=== PATIENT | male | born 1960 | race Caucasian/White ===

== ENCOUNTER 2022-11-30 08:52 | Outpatient (OUT) | payer OTHER, SELFPAY ==
--- NOTE | 2022-11-30 09:58 | CA_ITS ---
Patient: LUCILLE ELKINS Exam Date: 11/30/2022 : 1960 Gender:M Ordering : DR TYRON CATES . Admission #: [id number] Family : Order #: [id number] CLICK HERE TO VIEW EXAM ECHOCARDIOGRAM REPORT PROCEDURE: CA ECHO DOPPLER COMPLETE INDICATIONS: MURMUR COMPARISON: None. DESCRIPTION: COMPLETE ECHOCARDIOGRAM Real-time transthoracic echocardiography with 2D, M-mode, spectral and color flow Doppler performed. QUALITY: Technical quality was good. LEFT VENTRICLE: Normal chamber size. Borderline left ventricular hypertrophy. Global left ventricular systolic function is normal. LV EF: Estimated left ventricular ejection fraction is 60-65% DIASTOLIC: Normal diastolic function. ATRIAL SEPTUM: LEFT ATRIUM: Normal chamber size. RIGHT ATRIUM: Normal chamber size. RIGHT VENTRICLE: Normal chamber size. Normal right ventricular systolic function. TRICUSPID VALVE: Normal mobility and thickness. No stenosis with trivial regurgitation. No evidence of pulmonary hypertension. RVSP 21 mmHg MITRAL VALVE: Normal mobility and thickness. No evidence of mitral valve stenosis. There is no mitral annular calcification. No mitral regurgitation. AORTIC VALVE: Normal trileaflet appearance. Mildly calcified aortic valve. Normal leaflet mobility. No evidence of aortic valve stenosis. No aortic regurgitation. AORTIC ROOT: Normal diameter and appearance. PULMONIC VALVE: Normal thickness and mobility. No stenosis. Mild regurgitation. PERICARDIUM: No evidence of pericardial effusion. IVC: Collapses with inspirations. Normal size. PLEURA: CONCLUSION: 1. Normal left ventricular systolic function. LVEF is 60 to 65%. 2. Normal right ventricular size and systolic function. 3. Normal diastolic function. 4. No significant valvular dysfunction. 5. Normal right-sided pressures. Adult Echocardiography Procedure Report Left Ventricle LVEDD (3.7 - 5.6 cm): 4.61 cm LVESD (2.2 - 4.0 cm): 3.48 cm LVIVS thickness (0.6 - 1.2 cm): 1.23 cm LVPW thickness (0.5 - 1.0 cm): 0.98 cm e': 0.11 m/s E - e': 5.86 LVOT Max Gradient: 3.43 mm[Hg] LVOT Area (cm2): 0.93 m/s Peak Velocity (LVOT): 0.93 m/s Mean Velocity (LVOT): 0.62 m/s LVOT Diameter 2.17 cm Left Ventricular Ejection Fraction: 60-65 % Left Atrium LA Volume Index (2D A2C): 23.60 ml/m2 Left Atrium Systolic Dimension: 4.08 cm Mitral Valve MV E to A Ratio: 0.98 Mitral Valve A-Wave Peak Velocity: 0.64 m/s Mitral Valve E-Wave Peak Velocity: 0.63 m/s Right Ventricle RV Internal Diastolic Dimension: 3.22 cm Aorta AO Root Diam: 3.11 cm Ascending Ao Diam: 3.08 cm Aortic Valve AoV Area (Peak Carlos A): 1.90 cm2, 1.90 cm2 AoV Area (VTI): 1.69 cm2, 1.69 cm2 Peak Velocity(Antegrade Flow): 1.80 m/s Peak Gradient(Antegrade Flow): 13.00 mm[Hg] Mean Velocity(Antegrade Flow): 1.30 m/s Mean Gradient(Antegrade Flow): 7.59 mm[Hg] Velocity Time Integral: 40.49 cm Tricuspid Valve Peak Velocity (Regurgitant Flow): 1.47 m/s, 1.72 m/s, 2.14 m/s Pulmonic Valve Mean Gradient: 2.32 mm[Hg], 2.25 mm[Hg] Mean Velocity: 0.69 m/s, 0.68 m/s Peak Velocity: 1.17 m/s Peak Gradient: 5.44 mm[Hg], 5.44 mm[Hg] Right Atrium Right Atrium Systolic Pressure: 50.93 ml, 50.93 ml Dictated by: Aroldo Dawkins M.D. on 11/30/2022 at 18:18 Approved by: Aroldo Dawkins M.D. on 11/30/2022 at 18:21
[2022-11-30 10:03] LABS: Basophils Percent Auto 0.4 % (0.2-2.0); Eosinophils Absolute Auto 0.4 10^3/uL (0.0-0.7); Eosinophils Percent Auto 4.4 % (0.9-7.0); Hematocrit 48.7 % (42.0-54.0); Hemoglobin 16.7 g/dL (14.0-18.0); Immature Granulocytes Abs Auto 0.04 10^3/uL (0.00-0.03); Immature Granulocytes Pct Auto 0.5 % (0.0-0.5); Lymphocytes Absolute Auto 1.4 10^3/uL (1.2-3.8); Lymphocytes Percent Auto 16.2 % (20.5-60.0); Mean Corpuscular HGB Conc 34.3 g/dL (29.9-35.2); Mean Corpuscular Hemoglobin 29.8 pg (25.9-34.0); Mean Corpuscular Volume 86.8 fL (80.0-94.0); Monocytes Absolute Auto 0.9 10^3/uL (0.3-0.8); Monocytes Percent Auto 10.2 % (1.7-12.0); Neutrophils Absolute Auto 5.8 10^3/uL (1.4-6.5); Neutrophils Percent Auto 68.3 % (43.0-75.0); Platelet Count 249 10^3/uL (150-450); Red Blood Count 5.61 10^6/uL (4.70-6.10); Red Cell Distribution Width 12.5 % (11.0-15.0); White Blood Count 8.4 10^3/uL (4.0-11.0)
[2022-11-30 11:37] LABS: Estimated Average Glucose 117 mg/dL; Glycohemoglobin A1C 5.7 % (4.5-6.2)
[2022-11-30 11:53] LABS: Free T4 0.85 ng/dL (0.76-1.46)
[2022-11-30 11:54] LABS: Chol HDL Ratio 3.9; Cholesterol 170 mg/dL (<=200); HDL Cholesterol 44 mg/dL (40-60); LDL Cholesterol Calculated 112.8 mg/dL; Thyroid Stimulating Hormone 0.964 uIU/mL (0.358-3.740); Triglycerides 66 mg/dL (<=150); VLDL CHOLESTEROL 13.2 mg/dL
[2022-11-30 11:59] LABS: Prostate Specific Antigen Scrn 0.82 ng/mL (<=4.00)
== END 2022-11-30 08:53 | disposition home or self-care (01) ==
LOC: CARD 08:55
PROVIDERS: PCP Family Medicine; Visit Provider Family Medicine
DX: Z00.00 Encounter for general adult medical examination without abnormal findings (principal); Z12.5 Encounter for screening for malignant neoplasm of prostate; R01.1 Cardiac murmur, unspecified
CPT/HCPCS: 36415; 80061; 83036; 84439; 84443; 85025; 93306; G0103

== ENCOUNTER 2024-09-30 10:36 | Outpatient (OUT) | payer MEDICARE, SELFPAY ==
[2024-09-30 11:06] LABS: Basophils Percent Auto 0.3 % (0.2-2.0); Eosinophils Absolute Auto 0.2 10^3/uL (0.0-0.7); Eosinophils Percent Auto 1.9 % (0.9-7.0); Immature Granulocytes Abs Auto 0.05 10^3/uL (0.00-0.03); Immature Granulocytes Pct Auto 0.5 % (0.0-0.5); Lymphocytes Absolute Auto 1.3 10^3/uL (1.2-3.8); Lymphocytes Percent Auto 13.7 % (20.5-60.0); Mean Corpuscular HGB Conc 34.8 g/dL (29.9-35.2); Mean Corpuscular Hemoglobin 30.8 pg (25.9-34.0); Mean Corpuscular Volume 88.5 fL (80.0-94.0); Mean Platelet Volume 10.5 fL (9.5-13.5); Monocytes Absolute Auto 0.9 10^3/uL (0.3-0.8); Monocytes Percent Auto 9.1 % (1.7-12.0); Neutrophils Percent Auto 74.5 % (43.0-75.0); Platelet Count 244 10^3/uL (150-450); Red Cell Distribution Width 13.1 % (11.0-15.0); White Blood Count 9.5 10^3/uL (4.0-11.0)
[2024-09-30 11:17] LABS: Estimated Average Glucose 111 mg/dL; Glycohemoglobin A1C 5.5 % (4.5-6.2)
[2024-09-30 11:37] LABS: INR 0.97; Partial Thromboplastin Time 29.1 sec (22.3-36.2); Prothrombin Time 10.3 sec (9.0-11.6)
[2024-09-30 11:45] LABS: Alanine Aminotransferase 39 U/L (16-63); Albumin Globulin Ratio 0.9; Albumin Level 3.4 g/dL (3.4-5.0); Alkaline Phosphatase 118 U/L (46-116); Anion Gap 10.4; Aspartate Amino Transferase 16 U/L (15-37); BUN Creatinine Ratio 9.7; Bilirubin Total 0.4 mg/dL (0.2-1.0); Calcium 9.1 mg/dL (8.5-10.1); Carbon Dioxide 30.9 mmol/L (21.0-32.0); Chloride 106 mmol/L (98-107); Chol HDL Ratio 2.8; Cholesterol 155 mg/dL (<=200); Estimated GFR (African America >60 (>=60 mL/min/1.73m^2); Estimated GFR (Non-African Ame >60 (>=60 mL/min/1.73m^2); Free T3 2.43 pg/mL (2.18-3.98); Globulin 3.7 g/dL; Glucose 108 mg/dL (74-106); HDL Cholesterol 56 mg/dL (40-60); LDL Cholesterol Calculated 86.6 mg/dL; Potassium 4.3 mmol/L (3.5-5.1); Sodium 143 mmol/L (136-145); Thyroid Stimulating Hormone 1.345 uIU/mL (0.358-3.740); Total Protein 7.1 g/dL (6.4-8.2); Triglycerides 62 mg/dL (<=150); Troponin I High Sensitivity 15.1 pg/mL (4.0-76.1); VLDL CHOLESTEROL 12.4 mg/dL
[2024-09-30 11:56] LABS: Prostate Specific Antigen Scrn 1.07 ng/mL (<=4.00)
== END 2024-09-30 10:37 | disposition home or self-care (01) ==
PROVIDERS: PCP Family Medicine; Visit Provider Family Medicine
DX: M25.50 Pain in unspecified joint (principal); R60.9 Edema, unspecified; J44.9 Chronic obstructive pulmonary disease, unspecified; E78.5 Hyperlipidemia, unspecified; R73.09 Other abnormal glucose; Z12.5 Encounter for screening for malignant neoplasm of prostate; I50.30 Unspecified diastolic (congestive) heart failure; I11.0 Hypertensive heart disease with heart failure
CPT/HCPCS: 36415; 80053; 80061; 83036; 83880; 84436; 84443; 84481; 84484; 85025; 85610; 85730; G0103

== ENCOUNTER 2024-12-29 07:52 | Outpatient (OUT) | payer MEDICARE, SELFPAY ==
--- NOTE | 2024-12-29 08:00 | CA_ITS ---
Patient Name: LUCILLE ELKINS MR#: [id number] : 1960 Exam Date: 12/29/2024 Ordering Doctor: DR TYRON CATES . ECHOCARDIOGRAM REPORT PROCEDURE: CA ECHO DOPPLER COMPLETE INDICATIONS: Chest pain, MT, cardiac stents, smoker, hypertension COMPARISON: None. DESCRIPTION: COMPLETE ECHOCARDIOGRAM Real-time transthoracic echocardiography with 2D, M-mode, spectral and color flow Doppler performed. QUALITY: Technical quality was good. LEFT VENTRICLE: Normal chamber size. Thickened septal wall. Systolic function appears at the lower limits of normal. LV EF: Lower limits of normal left ventricular ejection fraction, (50-55%). DIASTOLIC: Diastolic function is indeterminate. ATRIAL SEPTUM: Visually appears intact. LEFT ATRIUM: Normal chamber size. RIGHT ATRIUM: Normal chamber size. RIGHT VENTRICLE: Normal chamber size. Normal right ventricular systolic function. TRICUSPID VALVE: Normal mobility and thickness. No stenosis with trivial regurgitation. Doppler studies reveal moderately (45-60) elevated right sided pressures. RVSP 46 mmHg MITRAL VALVE: Normal mobility and thickness. No evidence of mitral valve stenosis. There is no mitral annular calcification. Trivial mitral regurgitation. AORTIC VALVE: Normal trileaflet appearance. Mildly calcified aortic valve. Mildly diminished mobility. Doppler velocity suggest no significant aortic valve stenosis. No aortic regurgitation. AORTIC ROOT: Normal diameter and appearance, measuring 3.2 cm. Ascending aorta and aortic arch are normal in size. PULMONIC VALVE: Normal thickness and mobility. No stenosis. Mild regurgitation. PERICARDIUM: No evidence of pericardial effusion. IVC: Collapses with inspiration. PLEURA: CONCLUSION: 1. Normal left ventricular size with low normal systolic function. LVEF is 50 to 55%. 2. Normal right ventricular size and systolic function. 3. Mildly calcified aortic valve without significant stenosis. 4. Moderately elevated right-sided pressures. RVSP is 46 mmHg. Adult Echocardiography Procedure Report Left Ventricle LVEDD (3.7 - 5.6 cm): 4.79 cm LVESD (2.2 - 4.0 cm): 3.66 cm LVIVS thickness (0.6 - 1.2 cm): 1.31 cm LVPW thickness (0.5 - 1.0 cm): 1.01 cm e': 0.07 m/s E - e': 7.45 LVOT Max Gradient: 2.65 mm[Hg] LVOT Area (cm2): 0.81 m/s Peak Velocity (LVOT): 0.81 m/s Mean Velocity (LVOT): 0.49 m/s LVOT Diameter 2.19 cm Left Ventricular Ejection Fraction: 50-55 % Left Atrium LA Volume Index (2D A2C): 24.62 ml/m2 Left Atrium Systolic Dimension: 4.66 cm Mitral Valve MV E to A Ratio: 0.62 Mitral Valve A-Wave Peak Velocity: 0.87 m/s Mitral Valve E-Wave Peak Velocity: 0.53 m/s Right Ventricle Aorta AO Root Diam: 3.23 cm Ascending Ao Diam: 3.20 cm Aortic Valve AoV Area (Peak Carlos A): 1.62 cm2, 1.77 cm2 AoV Area (VTI): 1.84 cm2, 1.94 cm2 Peak Velocity(Antegrade Flow): 1.73 m/s, 1.77 m/s, 1.89 m/s Peak Gradient(Antegrade Flow): 12.01 mm[Hg], 12.48 mm[Hg], 14.36 mm[Hg] Mean Velocity(Antegrade Flow): 1.24 m/s, 1.13 m/s, 1.31 m/s Mean Gradient(Antegrade Flow): 7.01 mm[Hg], 6.10 mm[Hg], 7.94 mm[Hg] Velocity Time Integral: 38.78 cm, 38.72 cm, 40.95 cm Tricuspid Valve Peak Velocity (Regurgitant Flow): 3.28 m/s Pulmonic Valve Peak Velocity: 1.19 m/s Peak Gradient: 5.70 mm[Hg] Right Atrium Right Atrium Systolic Pressure: 63.97 ml, 63.97 ml Dictated by: Aroldo Dawkins M.D. on 12/29/2024 at 09:08 Approved by: Aroldo Dawkins M.D. on 12/29/2024 at 09:12
--- OUTSIDE RECORDS SUMMARY | 2024-12-29 08:03 | XMS_ITS | CCD ---
Author Organization [facility] Care Team Providers Care Per Assessment Nurse Name Role Phone LAURA DUNAWAY Attending Unavailable LAURA DUNAWAY Admitting Unavailable LAURA DUNAWAY Primary Care Unavailable LAURA DUNAWAY Attending Unavailable LAURA DUNAWAY Admitting Unavailable LAURA DUNAWAY Primary Care Unavailable LAURA DUNAWAY Consulting Unavailable Unavailable Unavailable Laura Dunaway Primary Care Provider Laura Dunaway Unavailable Unavailable Primary Care Provider Unavailjulieta e Emelyn HOT ROLL INSPECTOR - PRACTICE PHYSICIANLaura Primary Care Provide r LAURA DUNAWAY Primary Care Unavailable TYRON MONZON Referring Unavailable Medications Current Medications Medication Drug Class(es) Dates Sig (Normalized) Sig (Original) aspirin 81 mg delayed release oral tablet (7 sources) Platelet Aggregation Inhibitor, Nonsteroidal Anti-inflammatory Drug take 1 tablet by mouth once daily aspirin 81 MG EC tablet Take 81 mg by mouth daily Active atorvastatin 40 mg oral tablet (8 sources) HMG-CoA Reductase Inhibitor take 1 tablet by mouth at bedtime atorvastatin (LIPITOR) 40 MG tablet Take 40 mg by mouth at bedtime Active nitroglycerin 0.4 mg sublingual tablet (7 sources) Nitrate Vasodilator nitroGLYCERIN (NITROSTAT) 0.[address] 0.4 mg under the tongue every 5 minutes as needed for Chest pain up to max of 3 total doses. If no relief after 1 dose, call 911. Active tamsulosin hydrochloride 0.4 mg oral capsule (5 sources) alpha-Adrenergic Ce Start: 09-29-2021 take 1 capsule by mouth once daily tamsulosin (FLOMAX) 0.4 MG capsule Take 1 capsule by mouth daily 30 capsule 09/29/2021 Active Completed/Discontinued Medications Medication Drug Class(es) Dates Sig (Normalized) Sig (Original) cephalexin 500 mg oral capsule (2 sources) Cephalosporin Antibacterial Start: 09-29-2021 End: 10-06-2021 cephALEXin (KEFLEX) capsule 500 mg 1 ml ketorolac tromethamine 15 mg/ml cartridge (1 source) Nonsteroidal Anti-inflammatory Drug, Cyclooxygenase Inhibitor Start: 09-29-2021 End: 09-29-2021 ketorolac (TORADOL) injection 30 mg metoprolol tartrate 25 mg oral tablet (10 sources) beta-Adrenergic Ce Start: 08-15-2021 take 1 tablet by mouth twice daily Metoprolol Tartrate 25 MG Oral Tablet TAKE 1 TABLET Twice daily Quantity: 180 Refills: 3 Ordered: 15-Aug-2021 Adalberto Kunz DO Start : 15-Aug-2021 Active 1 ml morphine sulfate 4 mg/ml cartridge (1 source) Opioid Agonist Start: 09-29-2021 End: 09-29-2021 morphine injection 4 mg 50 ml sodium chloride 9 mg/ml injection (1 source) Start: 09-29-2021 End: 09-29-2021 0.9 % sodium chloride bolus Problems Active Problems Problem Classification Problem Date Documented Date Episodic/Chronic Calculus of urinary tract (2 sources) Kidney stone; Translations: [Calculus of kidney] Episodic Coronary atherosclerosis and other heart disease (16 sources) 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; Translations: [History of myocardial infarction] Onset: 04-15-2020 Chronic Disorders of lipid metabolism (6 sources) Hyperlipidemia; Translations: [Other and unspecified hyperlipidemia] Chronic Essential hypertension (7 sources) Essential (primary) hypertension; Translations: [Hypertensive disorder] Onset: 04-21-2020 Chronic Genitourinary symptoms and ill-defined conditions (1 source) Asymptomatic bacteriuria; Translations: [Bacteriuria] Episodic Malaise and fatigue (3 sources) Fatigue; Translations: [Other malaise and fatigue] Episodic Other non-traumatic joint disorders (2 sources) Pain in unspecified joint; Translations: [Pain in unspecified joint] Onset: 04-29-2024 Episodic Other nutritional; endocrine; and metabolic disorders (9 sources) Obesity; Translations: [Obesity, unspecified] Chronic Other screening for suspected conditions (not mental disorders or infectious disease) (1 source) Encounter for screening for malignant neoplasm of prostate; Translations: [ENC SCREEN MALIG NEOPLASM PROSTATE] Onset: 04-21-2020 Episodic Substance-related disorders (3 sources) Smokes tobacco daily; Translations: [Tobacco use disorder] Chronic Comment on above: 10 CIGARETTES DAILY; Past or Other Problems Problem Classification Problem Date Documented Da te Episodic/Chronic Residual codes; unclassified (3 sources) History of clinical finding in subject; Translations: [Personal history of other specified diseases] Resolved: 11-22-2021 Episodic Results Test Name Value Interpretation Reference Range Facility ALL C REACTIVE PROTEINon Interpretation and review of laboratory results Abnormal [facility] re MHPT C-REACTIVE PROTEIN 8.1 mg/L High 0.0 - 5.0 mg/L [facility] Original Ordering Provider[facility] C-Reactive Proteinon 024 CRP High sensitivity method [Mass/Vol] 8.1 mg/L High 0.0 - 5.0 mg/L [facility] Interpretation and review of laboratory results Abnormal [facility] CRP [Mass/Vol] 8.1 mg/L High 0.0-5.0 [facility] Comment on above: Performed By: #### R A #### [facility] [address] [place] [address] Corrections Caseworker: Willi Looney MD #### CRP, CDP #### [facility] [address] [place] [address] Corrections Caseworker: Cristofer Pedroza MD CBC with Auto Differentialon 04-29-2024 Basophils (Bld) [#/Vol] 0.03 10*3/uL [facility] Basophils/100 WBC (Bld) 0 % 0 - 2 % [facility] Eosinophils (Bld) [#/Vol] 0.15 10*3/uL [facility] Eosinophils/100 WBC (Bld) 1 % 1 - 4 % [facility] Erythrocyte distribution width (RBC) [Ratio] 13.0 % 11.8 - 14.4 % [facility] Hematocrit (Bld) [Volume fraction] 49.3 % 40.7 - 50.3 % [facility] Hemoglobin (Bld) [Mass/Vol] 17.1 g/dL High 13.0 - 17.0 g/dL [facility] Immature granulocytes (Bld) [#/Vol] 0.06 10*3/uL [facility] Immature granulocytes/100 WBC (Bld) 1 % High 0 [facility] Interpretation and review of laboratory results Abnormal [facility] Lymphocytes/100 WBC (Bld) 11 % Low 24 - 43 % [facility] Lymphocytes/100 WBC (Bld) 1.15 % [facility] MCH (RBC) [Entitic mass] 30.3 pg 25.2 - 33.5 pg [facility] MCHC (RBC) [Mass/Vol] 34.7 g/dL 28.4 - 34.8 g/dL [facility] MCV (RBC) [Entitic vol] 87.4 fL 82.6 - 102.9 fL [facility] Monocytes/100 WBC (Bld) 9 % 3 - 12 % [facility] Monocytes/100 WBC (Bld) 0.94 % [facility] Neutrophils/100 WBC (Bld) 78 % High 36 - 65 % [facility] Nucleated RBC/100 WBC (Bld) [Ratio] 0.0 % 0.0 per 100 WBC [facility] Platelet mean volume (Bld) [Entitic vol] 11.0 fL 8.1 - 13.5 fL [facility] Platelets (Bld) [#/Vol] 276 10*3/uL [facility] RBC (Bld) [#/Vol] 5.64 10*6/uL 4.21 - 5.7 7 m/uL [facility] Segmented neutrophils/100 WBC (Bld) 8.07 % [facility] WBC other (Bld) [#/Vol] 10.4 [facility] CBC with Diffon 04-29-2024 Abs. Basophil 0.03 k/uL Normal 0.00-0.20 [facility] Comment on above: Performed By: #### R A #### [address] [address] Corrections Caseworker: Willi Looney MD #### CRP, CDP #### [address] [place] [id number] Corrections Caseworker: rCistofer Pedroza MD Abs.Imm.Granulocyte 0.06 k/uL Normal 0.00-0.30 [facility] Comment on above: Performed By: #### R A #### [address] [address] Corrections Caseworker: Willi Looney MD #### CRP, CDP #### [address] [place] [id number] Corrections Caseworker: Cristofer Pedroza MD Abs.Neutrophil (Seg) 8.07 k/uL Normal 1.50-8.10 [facility] Comment on above: Performed By: #### R A #### [address] [address] Corrections Caseworker: Willi Looney MD #### CRP, CDP #### [address] [place] [id number] Corrections Caseworker: Cristofer Pedroza MD Basophils/100 WBC (Bld) 0 % Normal 0-2 [facility] Comment on above: Performed By: #### R A #### [address] [address] Corrections Caseworker: Willi Looney MD #### CRP, CDP #### [address] [place] [id number] Corrections Caseworker: Cristofer Pedroza MD Eosinophils (Bld) [#/Vol] 0.15 10*3/uL Normal 0.00-0.44 [facility] Comment on above: Performed By: #### R A #### [address] [address] Corrections Caseworker: Willi Looney MD #### CRP, CDP #### [facility] [address] [place] [address] Corrections Caseworker: Cristofer Pedroza MD Eosinophils/100 WBC (Bld) 1 % Normal 1-4 [facility] Comment on above: Performed By: #### R A #### [address] [id number] Corrections Caseworker: Willi Looney MD #### CRP, CDP #### [facility] [address] [place] [address] [place] [address] Corrections Caseworker: Cristofer Pedroza MD Erythrocyte distribution width (RBC) [Ratio] 13.0 % Normal 11.8-14.4 [facility] Comment on above: Performed By: #### R A #### [address] [address] Corrections Caseworker: Willi Looney MD #### CRP, CDP #### [facility] [address] [place] [address] [place] [address] Corrections Caseworker: Cristofer Pedroza MD Hematocrit (Bld) [Volume fraction] 49.3 % Normal 40.7-50.3 [facility] Comment on above: Performed By: #### R A #### [address] [address] Corrections Caseworker: Willi Looney MD #### CRP, CDP #### [facility] [address] [place] [address] [place], [place] [id number] Corrections Caseworker: Cristofer Pedroza MD Hemoglobin (Bld) [Mass/Vol] 17.1 g/dL High 13.0-17.0 [facility] Comment on above: Performed By: #### R A #### [address] [address] Corrections Caseworker: Willi Looney MD #### CRP, CDP #### [address] [place], [place] [id number] Corrections Caseworker: Cristofer Pedroza MD Immature granulocytes/100 WBC (Bld) 1 % High 0 [facility] Comment on above: Performed By: #### R A #### [address] [address] Corrections Caseworker: Willi Looney MD #### CRP, CDP #### [address] [place], [place] [id number] Corrections Caseworker: Cristofer Pedroza MD Lymphocytes (Bld) [#/Vol] 1.15 10*3/uL Normal 1.10-3.70 [facility] Comment on above: Performed By: #### R A #### [address] [address] Corrections Caseworker: Willi Looney MD #### CRP, CDP #### [address] [place] [id number] Corrections Caseworker: Cristofer Pedroza MD Lymphocytes/100 WBC (Bld) 11 % Low 24-43 [facility] Comment on above: Performed By: #### R A #### [address] [address] Corrections Caseworker: Willi Looney MD #### CRP, CDP #### [address] [place] [id number] Corrections Caseworker: Cristofer Pedroza MD MCH (RBC) [Entitic mass] 30.3 pg Normal 25.2-33.5 [facility] Comment on above: Performed By: #### R A #### [address] [address] Corrections Caseworker: Willi Looney MD #### CRP, CDP #### [address] [place], [place] [id number] Corrections Caseworker: Cristofer Pedroza MD MCHC (RBC) [Mass/Vol] 34.7 g/dL Normal 28.4-34.8 [facility] Comment on above: Performed By: #### R A #### [address] [address] Corrections Caseworker: Willi Looney MD #### CRP, CDP #### [address] [place] [address] Corrections Caseworker: Cristofer Pedroza MD MCV (RBC) [Entitic vol] 87.4 fL Normal 82.6-102.9 [facility] Comment on above: Performed By: #### R A #### [address] [address] Corrections Caseworker: Willi Looney MD #### CRP, CDP #### [address] [place] [id number] Corrections Caseworker: Cristofer Pedroza MD Monocytes (Bld) [#/Vol] 0.94 10*3/uL Normal 0.10-1.20 [facility] Comment on above: Performed By: #### R A #### [address] [address] Corrections Caseworker: Willi Looney MD #### CRP, CDP #### [address] [place] [address] Corrections Caseworker: Cristofer Pedroza MD Monocytes/100 WBC (Bld) 9 % Normal 3-12 [facility] Comment on above: Performed By: #### R A #### [address] [address] Corrections Caseworker: Willi Looney MD #### CRP, CDP #### [address] [place] [address] Corrections Caseworker: Cristofer Pedroza MD Neutrophil (Seg) 78 % High 36-65 [facility] Comment on above: Performed By: #### R A #### [address] [address] Corrections Caseworker: Willi Looney MD #### CRP, CDP #### [facility] [address] [place] [address] [place], [place] [phone] Corrections Caseworker: Cristofer Pedroza MD NRBC Automated 0.0 per 100 WBC Normal 0.0 [facility] Comment on above: Performed By: #### R A #### [address] [address] Corrections Caseworker: Willi Looney MD #### CRP, CDP #### [address] [place] [phone] Corrections Caseworker: Cristofer Pedroza MD Platelet mean volume (Bld) [Entitic vol] 11.0 fL Normal 8.1-13.5 [facility] Comment on above: Performed By: #### R A #### [address] [address] Corrections Caseworker: Willi Looney MD #### CRP, CDP #### [address] [place] [id number] Corrections Caseworker: Cristofer Pedroza MD Platelets (Bld) [#/Vol] 276 10*3/uL Normal 138-453 [facility] Comment on above: Performed By: #### R A #### [address] [address] Corrections Caseworker: Willi Looney MD #### CRP, CDP #### [address] [place], [place] [id number] Corrections Caseworker: Cristofer Pedroza MD RBC (Bld) [#/Vol] 5.64 10*6/uL Normal 4.21-5.77 [facility] Comment on above: Performed By: #### R A #### [facility] [address] [place], [place] [phone] Corrections Caseworker: Willi Looney MD #### CRP, CDP #### [facility] [address] [place] [address] Corrections Caseworker: Cristofer Pedroza MD WBC (Bld) [#/Vol] 10.4 10*3/uL Normal 3.5-11.3 [facility] Comment on above: Performed By: #### R A #### [facility] [address] [place], [place] [phone] Corrections Caseworker: Willi Looney MD #### STEVEN, CDP #### [facility] [address] [place] [address] Corrections Caseworker: Cristofer Pedroza MD MHPT CBC WITH DIFFon 024 Basophils/100 WBC (Bld) 0 % 0 - 2 % [facility] Eosinophils/100 WBC (Bld) 1 % 1 - 4 % [facility] Erythrocyte distribution width (RBC) [Ratio] 13 % 11.8 - 14.4 % [facility] Hematocrit (Bld) [Volume fraction] 49.3 % 40.7 - 50.3 % [facility] e Hemoglobin (Bld) [Mass/Vol] 17.1 g/dL High 13.0 - 17.0 g/dL [facility] Immature granulocytes/100 WBC (Bld) 1 % High 0 [facility] Interpretation and review of laboratory results Abnormal [facility] Lymph[facility]/100 WBC (Bld) 11 % Low 24 - 43 % [facility] MCH (RBC) [Entitic mass] 30.3 pg 25.2 - 33.5 pg [facility] MCHC (RBC) [Mass/Vol] 34.7 g/dL 28.4 - 34.8 g/dL [facility] MCV (RBC) [Entitic vol] 87.4 fL 82.6 - 102.9 fL [facility]. BASOPHIL 0.03 [facility] ABS. EOSINOPHIL 0.15 [facility] ABS. LYMPH 1.15 [facility] ABS. MONOCYTE 0.94 [facility] ABS.IMM.GRANULOCYTE 0.06 [facility] are MHPT ABS.NEUTROPHIL (SEG) 8.07 [facility] MH[facility] NRBC AUTOMATED 0 0.0 per 100 WBC [facility] MHPT PLATELET COUNT 276 [facility] WBC COUNT 10.4 [facility] Monocytes/100 WBC (Bld) 9 % 3 - 12 % [facility] Platelet mean volume (Bld) [Entitic vol] 11 fL 8.1 - 13.5 fL [facility] RBC (Bld) [#/Vol] 5.64 10*6/uL 4.21 - 5.7 7 m/uL [facility] Segmented neutrophils/100 WBC (Bld) 78 % High 36 - 65 % [facility] Original Ordering Provider: TYRON PERKINS [facility] RA Screenon 04-29-2024 RA Screen <10 Normal 0-13 [facility] Comment on above: Performed By: #### R A #### [facility] Search to Phone [address] [place], [place] [phone] Corrections Caseworker: Willi Looney MD #### CRP, CDP #### [facility] [address] [place] [address] Corrections Caseworker: Cristofer Pedroza MD Rheumatoid Factoron 04-29-20 24 Rheumatoid factor Nephelometry Qn (S) <10 [facility] Physician Orderon 11-23-2021 Physician Order [id number]#[id number] CD:127 Normal [facility] Office Visit (Cardiology)on 11-22-2021 Follow-up visit Diagnoses/Problems Assessed 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 [place] [place] coronary artery with angina pectoris, Hyperlipidemia, Hypertension ALT - Alanine Aminotransferase, Serum; Status:Active - Retrospective Authorization; Requested for:22Nov2021; Cardiac Stress Test; Status:Hold For - Scheduling,Retrospecti ve Authorization; Requested for:22Nov2021; Lipid Panel; Status:Active - Retrospective Authorization; Requested for:22Nov2021; Class 1 obesity without serious comorbidity with body mass index (BMI) of 33.0 to 33.9 in adult, unspecified obesity type Healthy Weight Tips; Status:Complete - Retrospective Authorization; Done: 22Nov2021 Hyperlipidemia Renew: Atorvastatin Calcium 40 MG Oral Tablet; TAKE 1 TABLET AT BEDTIME SocHx: Current every day smoker You need to stop smoking. Though it is not easy, more than half of all adult smokers have quit. We encourage you to write down all the reasons you should quit smoking and set a quit date for yourself. Ask us how we can help. You may also call [phone]; Status:Complete - Retrospective Authorization; Done: 22Nov2021 Tobacco Use Screening; Status:Complete; Done: 22Nov2021 Patient Instructions Please bring all medicines, vitamins, and herbal supplements with you when you come to the office. Prescriptions will not be filled unless you are compliant with your follow up appointments or have a follow up appointment scheduled as per instruction of your physician. Refills should be requested at the time of your visit. Follow up in 1 year. Chief Complaint BRETT ELKINS is being seen for an annual follow-up of. 60-year-old gentleman who returns for follow-up, doing well. Spent 2 years since I have last seen him. He has no angina or hospitalizations or nitrate usage. He has known history of previous inferior NC with revascularization of the RCA, in 2016. He has underlying hypertension, obesity, recurrent tobacco use We counseled him extensively for 5 minutes today on tobacco cessation, weight loss, exercise, aerobic training as means towards better secondary prevention. Recommendations: Obtain lipid panel above-mentioned counseling, he never followed up with stress testing 2 years ago and I would recommend at this juncture we proceed with routine treadmill stress testing as it has been 6 years from his last event. Surgical History Problems History of Appendectomy History of Cholecystectomy Past Medical History Problems History of fatigue (V13.89) (Z87.898) Resolved Date: 22 Nov 2021 Current Meds Medication NameInstruction Aspirin 81 MG Oral Tablet Delayed ReleaseTAKE 1 TABLET DAILY. Atorvastatin Calcium 40 MG Oral TabletTAKE 1 TABLET AT BEDTIME Metoprolol Tartrate 25 MG Oral TabletTAKE 1 TABLET Twice daily Nitroglycerin 0.4 [address]t SublingualPL[address] 1 TABLET UNDER THE TONGUE EVERY 5 MINUTES FOR UP TO 3 DOSES NEEDED FOR CHEST PAIN.CALL 911 IF PAIN PERSISTS. Allergies NoKnown No Known Allergies Recorded By: Jami Loving; 05/13/2021 10:55:43 AM Social History Problems Alcohol ingestion (V69.8) (Z78.9) Weekly Caffeine use (V49.89) (Z78.9) DECAF COFFEE 2 CUPS DAILY Current every day smoker (305.1) (F17.200) 10 CIGARETTES DAILY No illicit drug use Review of Systems Constitutional: not feeling tired. Cardiovascular: no intermittent leg claudication and as noted in HPI. Respiratory: shortness of breath, but no cough. Gastrointestinal: no change in bowel habits and no blood in stools. Integumentary: no skin rashes. Neurological: no seizures and no frequent falls. All other systems have been reviewed and are negative for complaint. Vitals Vital Signs Recorded: 22Nov2021 09:45AMRecorded: 22Nov2021 09:03AM Ohhtrpiy617, LUE, Anhhyue703, RUE, Sitting Cuxocrjbc83, LUE, Dsepdbh55, RUE, Sitting Heart Rate80, R Radial Height5 ft 7 in Neaoan034 lb BMI Nzkzjnktox23.08 kg/m2 BSA Calculated2.12 Tobacco Usea) Yes Patient encouraged to stop using tobacco productsYes PHQ-2 #1. Over the last 2 weeks have you felt down, (more content not included)... Normal [facility] Tobacco Cessationon 11-23-19 Adult depression screening assessment No [facility] [address] DO Work Phone: Fall risk assessment c) Not medically indicated [facility] DO Work Phone: Tobacco use status [facility] a) Yes [facility] 250 DO Work Phone: Tobacco Cessation Yes [facility] 250 DO Work Phone: XR ABDOMEN (KUB) (SINGLE AP VIEW)on 10-24-2021 Previously identifie d distal left ureteral stone by CT is not demonstrated on this exam. [facility] EXAMINATION: ONE SUPINE XRAY VIEW(S) OF THE ABDOMEN 10/24/2021 1:20 pm COMPARISON: CT 09/29/2021 HISTORY: ORDERING SYSTEM PROVIDED HISTORY: Ureteral calculus FINDINGS: No calculi identified in the region of the kidneys. No convincing evidence for residual left ureteral stone, as demonstrated by CT. Few small pelvic phleboliths are again demonstrated. Paucity of bowel gas. No osseous abnormality appreciated. [facility] Jose Yun MD - 10/24/2021 EXAMINATION: ONE SUPINE XRAY VIEW(S) OF THE ABDOMEN 10/24/2021 1:20 pm COMPARISON: CT 09/29/2021 HISTORY: ORDERING SYSTEM PROVIDED HISTORY: Ureteral calculus FINDINGS: No calculi identified in the region of the kidneys. No convincing evidence for residual left ureteral stone, as demonstrated by CT. Few small pelvic phleboliths are again demonstrated. Paucity of bowel gas. No osseous abnormality appreciated. IMPRESSION: Previously identified distal left ureteral stone by CT is not demonstrated on this exam. [employer] Phone: Radiology Study observation (narrative) [employer] Phone: XR ABDOMEN (KUB) (SINGLE AP VIEW)Ordered By: Jose Yun on 10-24-2021 [employer] Phone: CBC with Auto Differentialon 09-29-2021 Absolute Eos # 0.07 [employer] [facility] Absolute Immature Granulocyte 0.03 [facility] Absolute Lymph # 0.92 Low [facility] [place] [facility].89 [facility] Basophils (Bld) [#/Vol] 0.03 10*3/uL [facility] [facility]/100 WBC (Bld) 0 % 0 - 2 % [facility] Eosinophils/100 WBC (Bld) 1 % 1 - 4 % [facility] Hematocrit (Bld) [Volume fraction] 46.0 % 40.7 - 50.3 % [facility] Hemoglobin.gastroin testinal spec 1 Ql (Stl) 15.5 g/dL 13.0 - 17.0 g/dL [facility] Immature granulocytes/100 WBC (Bld) 0 % 0 [facility] Interpretation and review of laboratory results Abnormal [facility] Lymphocytes/100 WBC (Bld) 7 % Low 24 - 43 % [facility] MCH (RBC) [Entitic mass] 29.4 pg 25.2 - 33.5 pg [facility] MCHC (RBC) [Mass/Vol] 33.7 g/dL 28.4 - 34.8 g/dL [facility] MCV (RBC) [Entitic vol] 87.1 fL 82.6 - 102.9 fL [facility] Monocytes/100 WBC (Bld) 7 % 3 - 12 % [facility] NRBC Automated 0.0 0.0 per 100 WBC [facility] Platelet distribution width (Bld) [Ratio] 12.4 % 11.8 - 14.4 % [facility] Platelet mean volume (Bld) [Entitic vol] 10.3 fL 8.1 - 13.5 fL [facility] Platelets (Bld) [#/Vol] 236 10*3/uL [facility] RBC (Bld) [#/Vol] 5.28 10*6/uL 4.21 - 5.7 7 m/uL [facility] Segmented neutrophils/100 WBC (Bld) 85 % High 36 - 65 % [facility] Segs [facility] 10.59 [facility] [#/Vol] 12.5 10*3/uL High [facility] CT ABDOMEN PELVIS WO CONTRAS T Additional Contrast? Noneon 09-29-2021 Mild left hydronephrosis due to a distal 3-4 mm ureterolith. Multiple mild compression fractures probably remote. [facility] CONSOLIDATED EXAMINATION: CT OF THE ABDOMEN AND PELVIS WITHOUT CONTRAST 09/29/2021 6:51 pm TECHNIQUE: CT of the abdomen and pelvis was performed without the administration of intravenous contrast. Multiplanar reformatted images are provided for review. Dose modulation, iterative reconstruction, and/or weight based adjustment of the mA/kV was utilized to reduce the radiation dose to as low as reasonably achievable. COMPARISON: None. HISTORY: ORDERING SYSTEM PROVIDED HISTORY: stone protocol left sided TECHNOLOGIST PROVIDED HISTORY: stone protocol left sided Decision Support Exception - unselect if not a suspected or confirmed emergency medical condition->Emergency Medical Condition (MA) FINDINGS: Lower Chest: Calcific coronary artery disease and trace pericardial effusion. Organs: The abdominal wall appears normal. The liver, spleen, pancreas, and adrenals appear normal. Gallbladder normal. Right kidney normal. Mild left hydronephrosis and perinephric stranding due to a 3-4 mm distal ureterolith. The bladder appears normal. GI/Bowel: The stomach,small bowel, and colon appear normal. Colonic diverticulosis. Appendix normal. Pelvis: Fat containing bilateral inguinal hernias. Peritoneum/Retroperito neum: The abdominal aorta and iliac arteries are normal in caliber. There is no pathologic adenopathy. Calcified plaque along the aorta and its branches. Bones/Soft Tissues: Slight anterior wedging T11, T12, L1 and L2 and L3 and L4. [facility] CONSOLIDATED Codey Roberts MD - 09/29/2021 EXAMINATION: CT OF THE ABDOMEN AND PELVIS WITHOUT CONTRAST 09/29/2021 6:51 pm TECHNIQUE: CT of the abdomen and pelvis was performed without the administration of intravenous contrast. Multiplanar reformatted images are provided for review. Dose modulation, iterative reconstruction, and/or weight based adjustment of the mA/kV was utilized to reduce the radiation dose to as low as reasonably achievable. COMPARISON: None. HISTORY: ORDERING SYSTEM PROVIDED HISTORY: stone protocol left sided TECHNOLOGIST PROVIDED HISTORY: stone protocol left sided Decision Support Exception - unselect if not a suspected or confirmed emergency medical condition->Emergency Medical Condition (MA) FINDINGS: Lower Chest: Calcific coronary artery disease and trace pericardial effusion. Organs: The abdominal wall appears normal. The liver, spleen, pancreas, and adrenals appear normal. Gallbladder normal. Right kidney normal. Mild left hydronephrosis and perinephric stranding due to a 3-4 mm distal ureterolith. The bladder appears normal. GI/Bowel: The stomach,small bowel, and colon appear normal. Colonic diverticulosis. Appendix normal. Pelvis: Fat containing bilateral inguinal hernias. Peritoneum/Retroperito neum: The abdominal aorta and iliac arteries are normal in caliber. There is no pathologic adenopathy. Calcified plaque along the aorta and its branches. Bones/Soft Tissues: Slight anterior wedging T11, T12, L1 and L2 and L3 and L4. IMPRESSION: Mild left hydronephrosis due to a distal 3-4 mm ureterolith. Multiple mild compression fractures probably remote. [employer] Work Phone: Radiology Study observation (narrative) [facility] Phone: CT ABDOMEN PELVIS WO CONTRAS T Additional Contrast? NoneOrdered By: Codey Roberts on 09-29-2021 [facility] Phone: Comprehensive Metabolic Pane laura 09-29-2021 Albumin [Mass/Vol] 4.4 g/dL 3.5 - 5.2 g/dL [facility] Albumin/Globulin [Mass ratio] 1.3 {ratio} [facility] ALP (Bld) [Catalytic activity/Vol] 156 U/L High 40 - 129 U/L [facility] ALT [Catalytic activity/Vol] 38 U/L 5 - 41 U/L [facility] Anion gap [Moles/Vol] 13 mmol/L 9 - 17 mmol/L [facility] AST [Catalytic activity/Vol] 23 U/L <40 [facility] Bilirubin [Mass/Vol] 0.42 mg/dL 0.3 - 1.2 mg/dL [facility] Calcium [Mass/Vol] 9.9 mg/dL 8.6 - 10. 4 mg/dL [facility] Chloride [Moles/Vol] 104 mmol/L 98 - 107 mmol/L [facility] CO2 [Moles/Vol] 26 mmol/L 20 - 31 mmol/L [facility] Creatinine [Mass/Vol] 1.04 mg/dL 0.70 - 1.20 mg/dL [facility] Free PSA/Total PSA [Mass fraction] 7.7 g/dL 6.4 - 8.3 g/dL [facility] GFR >60 >60 mL/min [facility] GFR Non- >60 >60 mL/min [facility] Glucose [Mass/Vol] 118 mg/dL High 70 - 99 mg/dL [facility] Interpretation and review of laboratory results Abnormal [facility] Potassium [Moles/Vol] 4.2 mmol/L 3.7 - 5.3 mmol/L [facility] Sodium [Moles/Vol] 143 mmol/L 135 - 144 mmol/L [facility] Urea nitrogen (BldV) [Mass/Vol] 12 mg/dL 8 - 23 mg/dL [facility] Urea nitrogen/Creatinine (Bld) [Mass ratio] 12 [facility] Laboratory - Chemistry and C hemistry - challengeon 09-29-2021 GFR/1.73 sq M.predicted MDRD (S/P/Bld) [Vol rate/Area] [facility] Comment on above: Average GFR for 60-6 9 years old: 85 mL/min/1.73sq m Chronic Kidney Disease: <60 mL/min/1.73sq m Kidney failure: <15 mL/min/1.73sq m eGFR calculated using average adult body mass. Additional eGFR calculator available at: http://www.[employer]/multiple_crcl_2012.htm Stage 1: Some kidney damage normal GFR Stage 2: Mild kidney damage GFR 60-89 Stage 3: Moderate kidney damage GFR 30-59 Stage 4: Severe kidney damage GFR 15-29 Stage 5: Severe kidney damage GFR <15 ESRD - chronic treatment by dialysis or transplant Lipaseon 09-29-2021 Lipase [Catalytic activity/Vol] 28 U/L 13 - 60 U/L [facility] Microscopic Urinalysison - [facility] Bacteria, UA 3+ Abnormal None [facility] Epithelial Cells UA 0 TO 2 [facility] Interpretation and review of laboratory results Abnormal [facility] Mucus, UA 2+ Abnormal None [facility] RBC, UA 50 TO 100 [facility] WBC, UA 2 TO 5 [facility] Yeast, UA 2+ Abnormal None [facility] No Panel Informationon 09-29 [facility] SPECIMEN REJECTIONon 022 Ordered Test CDP [facility] Reason for Rejection Unable to perform testing: Specimen clotted. [facility] Specimen source Nom (Unsp spec) .BLOOD [facility] Urinalysis with Reflex to Cu ltureon 09-29-2021 Bilirubin Urine SMALL Abnormal NEGATIVE [facility] lt Color, UA Yellow Yellow [facility] Glucose, Ur Negative NEGATIVE [facility] Interpretation and review of laboratory results Abnormal [facility] Ketones Ql (U) TRACE Abnormal NEGATIVE [facility] Leukocyte esterase Test strip Ql (U) Negative NEGATIVE [facility] Nitrite, Urine Negative NEGATIVE [facility] pH, UA 6.0 [facility] Protein, UA 2+ Abnormal NEGATIVE [facility] Specific Lindstrom, UA >1.030 High [facility] Turbidity UA Cloudy Abnormal Clear [facility] Urine Hgb 3+ Abnormal NEGATIVE [facility] Urobilinogen, Urine Normal Normal [facility] UA RANDOM W/MICROSCOPICon Bacteria LM.HPF (Urine sed) [#/Area] NONE SEEN Normal NONE SEEN [facility] Comment on above: Performed By: #### U AMIC #### [facility] [address] [place] [address] Baldo Irma Bilirubin [Mass/Vol] Negative Normal NEGATIVE [facility] Comment on above: Performed By: #### U AMIC #### [facility] [address] [place] [address] [place] BLOOD Negative Normal NEGATIVE [facility] Comment on above: Performed By: #### U AMIC #### [facility] [address] [place] [address] Baldo Irma CAST NONE SEEN Normal NONE SEEN [facility] Comment on above: Performed By: #### U AMIC #### [facility] [address] [place] [address] Baldo Irma Clarity (U) CLEAR Normal [facility] Comment on above: Performed By: #### U AMIC #### [facility] [address] [place] [address] Baldo Irma Color (U) YELLOW Normal YELLOW [facility] Comment on above: Performed By: #### U AMIC #### [facility] [address] [place] [address] Baldo Irma Crystals LM Nom (Urine sed) NONE SEEN Normal NONE SEEN [facility] Comment on above: Performed By: #### U AMIC #### [facility] [address] [id number] [place] Epithelial cells LM.HPF (Urine sed) [#/Area] NONE SEEN Normal [facility] Comment on above: Performed By: #### U AMIC #### [facility] [address] [phone] [place] Glucose [Mass/Vol] Negative Normal NEGATIVE [facility] Comment on above: Performed By: #### U AMIC #### [facility] [address] [address] [place] Irma Ketones Ql (U) Negative Normal NEGATIVE [facility] Comment on above: Performed By: #### U AMIC #### [facility] [address] [address] [place] MUCOUS TRACE Normal NONE SEEN [facility] Comment on above: Performed By: #### U AMIC #### [facility] [address] [address] [place] Nitrite Ql (U) Negative Normal NEGATIVE [facility] Comment on above: Performed By: #### U AMIC #### [facility] [address] [phone] Baldo Irma pH (Bld) 6.0 Normal 5-9 [facility] Comment on above: Performed By: #### U AMIC #### [facility] [address] [place] [address] [place]do Irma Protein [Mass/Vol] Negative Normal [facility] Comment on above: Performed By: #### U AMIC #### [facility] [address] [address] [place]do Irma RBC (Bld) [#/Vol] NONE SEEN Normal 0-2 [facility] Comment on above: Performed By: #### U AMIC #### [facility] [address] [place] [address] Baldo Irma SPEC GRAVITY >=1.030 Normal 1.005-<=1.025 [facility] Comment on above: Performed By: #### U AMIC #### [facility] [address] [place], [place] [address] Baldo Irma Urobilinogen Qn (U) 0.2 EU/dl Normal [facility] Comment on above: Performed By: #### U AMIC #### [facility] [address] [place] [address] [place]do [place] WBC (Bld) [#/Vol] NONE SEEN Normal NONE SEEN [facility] Comment on above: Performed By: #### U AMIC #### [facility] [address] [place], [place] [address] Baldo Irma WBC (Bld) [#/Vol] Negative Normal NEGATIVE [facility] Comment on above: Performed By: #### U AMIC #### [facility] [address] [place] [address] [place]do [place] CBC AUTO DIFFon 04-15-2020 Basophils (Bld) [#/Vol] 0.0 103/ul Normal 0.0-0.1 [facility] Comment on above: Performed By: #### C BC #### [facility] [address] [place] [address] Baldo [place] Basophils/100 WBC (Bld) 0.3 % Normal 0.2-2.0 [facility] Comment on above: Performed By: #### C BC #### [facility] [address] [place] [address] Baldo Irma Eosinophils (Bld) [#/Vol] 0.3 103/ul Normal 0.0-0.7 [facility] Comment on above: Performed By: #### C BC #### [facility] [address] [place] [address] Baldo Ir[place] Eosinophils/100 WBC (Bld) 3.4 % Normal 0.9-7.0 [facility] Comment on above: Performed By: #### C BC #### [facility] [address] [place] [address] Baldo [place] Erythrocyte distribution width (RBC) [Ratio] 12.5 % Normal 11.0-15.0 [facility] Comment on above: Performed By: #### C BC #### [facility] [address] [phone] [place]do [place] Hematocrit (Bld) [Volume fraction] 47.0 % Normal 42.0-54.0 [facility] Comment on above: Performed By: #### C BC #### [facility] [address] [phone] [place]do Irma Hemoglobin (Bld) [Mass/Vol] 15.5 g/dL Normal 14.0-18.0 [facility] Comment on above: Performed By: #### C BC #### [facility] [address] [place], [place] [phone] Baldo Irma IG # 0.01 10e3/ul Normal 0.00-0.03 [facility] Comment on above: Performed By: #### C BC #### [facility] [address] [place] [address] Baldo Irma IG % 0.1 % Normal 0.0-0.5 [facility] Comment on above: Performed By: #### C BC #### [facility] [address] [place], [place] [phone] Baldo Irma Lymphocytes (Bld) [#/Vol] 2.0 103/ul Normal 1.2-3.8 [facility] Comment on above: Performed By: #### C BC #### [facility] [address] [place], [place] [phone] Baldo Irma Lymphocytes/100 WBC (Bld) 25.3 % Normal 20.5-60.0 [facility] Comment on above: Performed By: #### C BC #### [facility] [address] [place], [place] [phone] [place] MANUAL DIFF REQ NO Normal [facility] Comment on above: Performed By: #### C BC #### [facility] [address] [place], [place] [phone] Baldo Irma MCH (RBC) [Entitic mass] 29.5 pg Normal 25.9-34.0 [facility] Comment on above: Performed By: #### C BC #### [facility] [address] [place], [place] [phone] Baldo Irma MCHC (RBC) [Mass/Vol] 33.0 g/dL Normal 29.9-35.2 [facility] Comment on above: Performed By: #### C BC #### [facility] [address] [place], [place] [address] Baldojohnny Garen MCV (RBC) [Entitic vol] 89.4 fL Normal 80.0-94.0 [facility] Comment on above: Performed By: #### C BC #### [facility] [address] [phone] [place]do Irma Monocytes (Bld) [#/Vol] 0.7 103/ul Normal 0.3-0.8 [facility] Comment on above: Performed By: #### C BC #### [facility] [address] [place], [place] [phone] Baldo Irma Monocytes/100 WBC (Bld) 8.5 % Normal 1.7-12.0 [facility] Comment on above: Performed By: #### C BC #### [facility] [address] [place], [place] [phone] [place]do Irma Neutrophils (Bld) [#/Vol] 5.0 103/ul Normal 1.4-6.5 [facility] Comment on above: Performed By: #### C BC #### [facility] [address] [place], [place] [phone] Baldo Irma Neutrophils/100 WBC (Bld) 62.4 % Normal 43.0-75.0 [facility] Comment on above: Performed By: #### C BC #### [facility] [address] [place], [place] [phone] Baldo [place]ma Platelet mean volume (Bld) [Entitic vol] 11.7 fL Normal 9.5-13.5 [facility] Comment on above: Performed By: #### C BC #### [facility] [address] [place], [place] [phone] Bal[place] Platelets (Bld) [#/Vol] 264 103/ul Normal 150-450 [facility] Comment on above: Performed By: #### C BC #### [facility] [address] [place] [address] [place] RBC (Bld) [#/Vol] 5.26 106/ul Normal 4.70-6.10 [facility] Comment on above: Performed By: #### C BC #### [facility] [address] [place], [place] [phone] [place]ma WBC (Bld) [#/Vol] 8.0 103/ul Normal 4.0-11.0 [facility] Comment on above: Performed By: #### C BC #### [facility] [address] [place], [place] [phone] Baldo Rima LIPID PROFILEon 04-15-2020 CHOL-HDL RATIO NORM SEE BELOW Normal [facility] Comment on above: Result Comment: 3.3 - 4.4 LOW RISK 4.4 - 7.1 AVERAGE RISK 7.1 - 11.0 MODERATE RISK >11.0 HIGH RISK Performed By: #### C MP, LIPID, PSASC #### [facility] [address] [place], [place] [phone] [place] Cholesterol [Mass/Vol] 160 mg/dL Normal <=200 [facility] Comment on above: Performed By: #### C MP, LIPID, PSASC #### [facility] [address] [place], [place] [phone] [place] Cholesterol in HDL [Mass/Vol] > or = 60 mg/dl - LOW CARDIOVASCULAR RISK <40 mg/dl - HIGH CARDIOVASCULAR RISK Normal [facility] Comment on above: Performed By: #### C MP, LIPID, PSASC #### [facility] [address] [place], [place] [phone] Bal[place] Cholesterol in HDL [Mass/Vol] 64 mg/dL Normal [facility] Comment on above: Performed By: #### C MP, LIPID, PSASC #### [facility] [address] [place], [place] [phone] Baldo Ir[place] Cholesterol in LDL [Mass/Vol] 83.8 mg/dL Normal [facility] Comment on above: Performed By: #### C MP, LIPID, PSASC #### [facility] [address] [place], [place] [address] Baldo Irma Cholesterol in LDL [Mass/Vol] SEE BELOW Normal [facility] Comment on above: Result Comment: <100 mg/dl OPTIMAL 100 - 129 mg/dl NEAR OR ABOVE OPTIMAL 130 - 159 mg/dl BORDERLINE HIGH 160 - 189 mg/dl HIGH >190 mg/dl VERY HIGH Performed By: #### C MP, LIPID, PSASC #### [facility] [address] [place], [place] [address] Baldo Irma Cholesterol.total/C holesterol in HDL [Mass ratio] 2.5 {ratio} Normal [facility] Comment on above: Performed By: #### C MP, LIPID, PSASC #### [facility] [address] [phone] [place] Triglyceride [Mass/Vol] 61 mg/dL Normal <=150 [facility] Comment on above: Performed By: #### C MP, LIPID, PSASC #### [facility] [address] [place], [place] [phone] Baldo Irma VLDL CALC 12.2 mg/dL Normal [facility] Comment on above: Performed By: #### C MP, LIPID, PSASC #### [facility] [address] [phone] Baldojohnny Solis PROF 14(COMP METB)on 020 Albumin [Mass/Vol] 4.2 g/dL Normal 3.5-5.0 [facility] Comment on above: Performed By: #### C MP, LIPID, PSASC #### [facility] [address] [place], [place] [phone] [place] Albumin/Globulin [Mass ratio] 1.1 {ratio} Normal [facility] Comment on above: Performed By: #### C MP, LIPID, PSASC #### [facility] [address] [place], [place] [phone] Baldo Irma ALP [Catalytic activity/Vol] 92 U/L Normal 38-126 [facility] Comment on above: Performed By: #### C MP, LIPID, PSASC #### [facility] [address] [phone] Baldo Irma ALT [Catalytic activity/Vol] 35 U/L Normal 21-72 [facility] Comment on above: Performed By: #### C MP, LIPID, PSASC #### [facility] [address] [place] [address] Baldo Irma Anion gap [Moles/Vol] 10.6 mmol/L Normal [facility] Comment on above: Performed By: #### C MP, LIPID, PSASC #### [facility] [address] [place] [address] Baldo Irma AST [Catalytic activity/Vol] 18 U/L Normal 17-59 [facility] Comment on above: Performed By: #### C MP, LIPID, PSASC #### [facility] [address] [place] [address] Baldo Irma Bilirubin Ql (U) 0.5 mg/dL Normal 0.2-1.3 [facility] Comment on above: Performed By: #### C MP, LIPID, PSASC #### [facility] [address] [place] [address] Baldo Irma Calcium [Mass/Vol] 9.6 mg/dL Normal 8.4-10.2 [facility] Comment on above: Performed By: #### C MP, LIPID, PSASC #### [facility] [address] [place] [address] Baldo Irma Chloride [Moles/Vol] 105 mmol/L Normal 98-107 [facility] Comment on above: Performed By: #### C MP, LIPID, PSASC #### [facility] [address] [place] [address] Baldo Irma CO2 [Moles/Vol] 27.6 mmol/L Normal 22.0-30.0 [facility] Comment on above: Performed By: #### C MP, LIPID, PSASC #### [facility] [address] [place] [address] Baldo Irma Creatinine [Mass/Vol] 0.75 mg/dL Normal 0.66-1.25 [facility] Comment on above: Performed By: #### C MP, LIPID, PSASC #### [facility] [address] [place], [place] [address] Baldo Irma EGFR-AF MARTINIQUAIS >60 Normal >=60 [facility] Comment on above: Performed By: #### C MP, LIPID, PSASC #### [facility] [address] [phone] Baldo Irma EGFR-NON AF MARTINIQUAIS >60 Normal >=60 [facility] Comment on above: Performed By: #### C MP, LIPID, PSASC #### [facility] [address] [phone] Baldo Irma Globulin (S) [Mass/Vol] 3.7 g/dL Normal [facility] Comment on above: Performed By: #### C MP, LIPID, PSASC #### [facility] [address] [place] [address] Baldo Irma Glucose [Mass/Vol] 80 mg/dL Normal 74-106 [facility] Comment on above: Performed By: #### C MP, LIPID, PSASC #### [facility] [address] [place] [address] Baldo Irma Potassium [Moles/Vol] 4.2 mmol/L Normal 3.4-5.0 [facility] Comment on above: Performed By: #### C MP, LIPID, PSASC #### [facility] [address] [place] [address] Baldo Irma Protein [Mass/Vol] 7.9 g/dL Normal 6.1-8.2 [facility] Comment on above: Performed By: #### C MP, LIPID, PSASC #### [facility] [address] [place] [address] Baldo Irma Sodium [Moles/Vol] 139 mmol/L Normal 137-145 [facility] Comment on above: Performed By: #### C MP, LIPID, PSASC #### [facility] [address] [place] [id number] Baldo Irma Urea nitrogen [Mass/Vol] 11.0 mg/dL Normal 9.0-20.0 [facility] Comment on above: Performed By: #### C MP, LIPID, PSASC #### [facility] [address], [place] [address] Baldo Solis Urea nitrogen/Creatinine [Mass ratio] 14.7 mg/mg Normal [facility] Comment on above: Performed By: #### C MP, LIPID, PSASC #### [facility] [address], [place] [address] Baldo Solis Vital Signs Date Time Vital Sign Value Performing Clinician Lianet gonzalez 11-22-2021 09:45-0400 Diastolic blood pressure 80 mm[Hg] Laura Darby Shelleyholz Work Phone: [facility] DO Work Phone: 11-22-2021 09:45-0400 Systolic blood pressure 138 mm[Hg] Laura Darby Lukejayleenholz Work Phone: [facility] DO Work Phone: 11-22-2021 09:03-0400 Body height 170.18 cm Laura Rosaholz Work Phone: [facility] DO Work Phone: 11-22-2021 09:03-0400 Body mass index (BMI) [Ratio] 35.08 kg/m2 Laura Rosaholz Work Phone: [facility] DO Work Phone: 11-22-2021 09:03-0400 Body surface area Derived from formula 2.12 m2 Laura Darby Shelleyholz Work Phone: [facility] DO Work Phone: 11-22-2021 09:03-0400 Body weight 101.61 kg Laura Darby Lukejayleenholz Work Phone: [facility] DO Work Phone: 11-22-2021 09:03-0400 Diastolic blood pressure 92 mm[Hg] Laura Lukejayleenholz Work Phone: [facility] DO Work Phone: 11-22-2021 09:03-0400 Heart rate 80 /min Laura Dunaway Work Phone: [facility] DO Work Phone: 11-22-2021 09:03-0400 Systolic blood pressure 156 mm[Hg] Laura Dunaway Work Phone: [facility] DO Work Phone: 09-29-2021 19:30-0400 Diastolic blood pressure 94 mm[Hg] Rick Vivienneaishaan DO Work Phone: [email or web address] 09-29-2021 19:30-0400 SaO2% (BldA) [Mass fraction] 93 % Rick Langharaishaan DO Work Phone: [email or web address] 09-29-2021 19:30-0400 Systolic blood pressure 109 mm[Hg] Rick Viviennettan DO Work Phone: [email or web address] 09-29-2021 18:06-0400 Body height 170.2 cm Rick Langharaisharoque DO Work Phone: [email or web address] 09-29-2021 18:06-0400 Body mass index (BMI) [Ratio] 37.59 kg/m2 Rick Langharttan DO Work Phone: [email or web address] 09-29-2021 18:06-0400 Body temperature 98.49 [degF] Rick Vivienneaishaan DO Work Phone: [email or web address] 09-29-2021 18:06-0400 Body weight 108.86 kg Rick Langharjesse DO Work Phone: [email or web address] 09-29-2021 18:06-0400 Heart rate 95 /min Rick Vivienneaishaan DO Work Phone: [email or web address] 09-29-2021 18:06-0400 Respiratory rate 20 /min Rick Viviennejesse DO Work Phone: [email or web address] Encounters Encounter Date Encounter Type Care Provider Facility Start: 04-29-2024 End: 04-29-2024 Clinisync Result Encounter Generic External Data Provider [facility] Unsolicited Start: 04-29-2024 End: 04-29-2024 Clinisync Result Encounter Generic External Data Provider [facility] External [facility] Unsolicited Start: 04-29-2024 End: 04-29-2024 ambulatory LAURA DUNAWAY [facility] Start: 04-29-2024 End: 04-29-2024 Subsequent hospital visit by physician Laura Dunaway HOT ROLL INSPECTOR - PRACTICE PHYSICIAN Other Phone: [facility] Start: 12-19-2021 Rx Renewal Laura Karimi lz Work Phone: [facility] DO Work Phone: Start: 11-22-2021 Office outpatient vi sit 25 minutes Laura Dunaway Work Phone: [facility] DO Work Phone: Start: 10-24-2021 End: 10-26-2021 Subsequent hospital visit by physician Orquidea Munguia Dr Room 2 [facility] Comment on above: Ureteral calculus Start: 09-29-2021 End: 09-29-2021 Emergency department patient visit Rick Gaviria DO Work Phone: [facility] ED Comment on above: Nephrolithiasis (Cindy [place] Dx); Asymptomatic bacteriuria Start: 09-21-2021 AUDIT Adalberto silva DO Work Phone: [facility] DO Work Phone: Start: 08-24-2021 Patient encounter procedure Adalberto Kunz DO Work Phone: [facility] DO Work Phone: Start: 08-15-2021 Rx Renewal Adalberto silva DO Work Phone: [facility] DO Work Phone: Start: 05-04-2020 Patient encounter procedure LAURA DUNAWAY Facility:[facility]1 Start: 04-15-2020 End: 04-16-2020 Patient encounter procedure LAURA DUNAWAY Facility:[facility] Procedures Date Procedure Procedure Detail Performing Clinician Start: 04-29-2024 ALL C REACTIVE PROTEIN Generic External Data Provider Start: 04-29-2024 Blood count complete auto&auto difrntl wbc Tyron Monzon MD Work Phone: Start: 04-29-2024 C-reactive protein Oli Monzon MD Work Phone: Start: 04-29-2024 MHPT CBC WITH DIFF Gene annamarie External Data Provider Start: 10-24-2021 Radiologic exam abdo men 1 view Semaj Cameron MD Work Phone: Start: 09-29-2021 Urinalysis microscopic only Rick Gaviria DO Work Phone: Start: 09-29-2021 Urnls dip stick/tabl et rgnt auto w/o microscopy Rick Gaviria DO Work Phone: Start: 09-29-2021 Ct abdomen & pelvis w/o contrast material Rick Gaviria DO Work Phone: Start: 09-29-2021 End: 09-29-2021 Comprehensive metabolic panel Rick Gaviria DO Work Phone: Start: 09-29-2021 SPECIMEN REJECTION Doe Gaviria DO Work Phone: Start: 04-15-2020 [object Object] LAURA HAYES Comment on above: Performed By: #### C MP, LIPID, PSASC #### [facility] [address] [address] Baldo Irma Appendectomy Adalberto Kunz DO Work Phone: Cholecystectomy Adalberto artis DO Work Phone: History of percutane ous transluminal coronary angioplasty History of PTCA Adalberto Kunz DO Work Phone: Plan of Treatment Date Care Activity Detail Author Start: 2033 Respiratory Syncytia l Virus (RSV) or age 60 yrs+ (1 - 1-dose 75+ series) Respiratory Syncytial Virus (RSV) or age 60 yrs+ (1 - 1-dose 75+ series) [facility] Start: 04-29-2024 Annual Wellness Visi t (Medicare) Annual Wellness Visit (Medicare) [facility] Start: 02-03-2024 COVID-19 Vaccine ( season) COVID-19 Vaccine ( season) [facility] Start: 01-03-2024 Influenza vaccination Flu vaccine (# 1) [facility] Start: 12-29-2023 Abdominal aortic aneurysm screening AAA screen [facility] Start: 11-22-2022 [facility]UV, Provider: Adalberto Kunz, Status: Pen, Time: 10:00 AM [facility]UV, Provider: Adalberto Kunz, Status: Pen, Time: 10:00 AM [facility] 250 DO Work Phone: Start: 10-26-2022 End: 10-26-2022 Patient encounter procedure 10/26/2022 Office Visit Urology Estephanie Sosa, HOT ROLL INSPECTOR - FLAME HARDENING MACHINE SETTER [address] [facility] [address] [place] [address] [facility] Start: 02-02-2022 Influenza vaccination Flu vacc ine (Season Ended) [facility] Start: 12-14-2021 [facility], Provider: Gerry Paniagua, Status: Pen, Time: 1:00 PM [facility], Provider: Gerry Paniagua, Status: Pen, Time: 1:00 PM [facility] 250 DO Work Phone: Start: 11-22-2021 FUV, Provider: Adalberto Kunz, Status: Pen, Time: 9:00 AM [facility], Provider: Adalberto Kunz, Status: Pen, Time: 9:00 AM [facility] 250 DO Work Phone: Start: 08-24-2021 FUV, Provider: Adalberto Kunz, Status: Pen, Time: 10:40 AM [facility], Provider: Adalberto Kunz, Status: Pen, Time: 10:40 AM [place] [address] DO Work Phone: Start: 05-18-2021 COVID-19 Vaccine (3 - Booster for Pfizer series) COVID-19 Vaccine (3 - Booster for Pfizer series) [facility] Start: 05-30-2017 Pneumococcal 0-64 ye ars Vaccine (2 - PCV) Pneumococcal 0-64 years Vaccine (2 - PCV) [facility] Start: 05-30-2017 Pneumococcal 65+ yea rs Vaccine (2 of 2 - PCV) Pneumococcal 65+ years Vaccine (2 of 2 - PCV) [facility] Start: 2008 Shingles Vaccine (1 of 2) Shingles Vaccine (1 of 2) [facility] Start: 12-29-2003 Screening for malign ant neoplasm of colon [facility] Start: 1998 Prostate specific antigen measurement Prostate Specific Antigen (PSA) Screening or Monitoring [facility] Start: 1993 Diabetes screen Diabetes screen [facility] Start: 1977 DTaP/Tdap/Td vaccine (1 - Tdap) DTaP/Tdap/Td vaccine (1 - Tdap) [facility] Start: 1976 Hepatitis C screening Hepatitis C sc [facility] Start: 1973 HIV screening HIV screen [facility] Start: 1970 Depression Screen Depression Screen [facility] Start: 1968 Lipid panel Lipids [facility] Start: 12-29-1963 COVID-19 Vaccine (1) COVID-19 Vaccin e (1) [facility] Immunizations Immunization Date Immunization Notes Care Provider Fa cili 04-04-2020 influenza virus vaccine, unspecified formulation Adalberto Kunz DO Work Phone: [facility] 250 DO Work Phone: 05-08-2016 influenza virus vaccine, unspecified formulation Adalberto Kunz DO Work Phone: [facility] 250 DO Work Phone: 05-08-2016 pneumococcal conjuga te vaccine, 7 valent [facility] Work Phone: Payers Date Payer Category Payer Medicare [id number] 2021 Unknown GLORIA ROSSI [facility] [id number] 2021-Present [phone] [address] [place] [address] [id number] 1959 Unknown [id number] 1958 Unknown [id number] 1958 Unknown [id number] 1958 Unknown [id number] Unknown Social History Date Type Detail Facility Start: 09-29-2021 End: 10-26-2021 Caffeine use Caffeine use [facility] 250 DO Work Phone: Comment on above: DECAF COFFEE 2 CUPS DAILY; 2-5 CIGARETTES DAILY ; Weekly; 10 CIGARETTES DAILY; Start: 09-29-2021 End: 10-03-2021 Tobacco smoking status NEIS Smokes tobacco daily [email or web address] Work Phone: Start: 09-29-2021 End: 10-03-2021 Tobacco use and exposure Smokeless tobacco non-user [facility] Phone: Start: 09-29-2021 End: 10-26-2021 Alcohol intake Current drinker of alcohol (finding) [facility] Phone: Start: 1960 [facility] Start: 09-19-2021 End: 09-29-2021 Exposure to SARS-CoV-2 (event) Not sure [facility] Work Phone: Tobacco smoking stat [facility] Tobacco smoking consumption unknown [facility] Start: 10-26-2021 Gender identity Not on file [facility] History of tobacco use Cigarette Smoker B [facility] Discharge instructions 09-29-2021 InstructionsAttachments Note Date & Type Note Facility 09-29-2021 Hospital Discharg e instructions Rick Gaviria, DO - 09/29/2021 Please get vaccinated against COVID-19 it is free, safe and it saves lives. Even if you have had Covid you can get it again and infect other people. The best way to protect yourself and others is with the vaccine. Covid will continue to mutate and we will have new and more serious variants until enough of the population is vaccinated You were seen and evaluated in the emergency department with a complaint of abdominal pain found to have a kidney stone. In consultation with urology you were started on antibiotics will need to follow-up with them please call as above.. Our evaluation showed no acute abnormalities requiring emergent intervention nor admission to the hospital. Please follow-up with your primary care physician. Call for an appointment to be seen within the next 1 to 2 days. If you do not have a primary care physician we have given you information on obtaining one. Please continue taking all prescribed medications. Please continue to socially distance, wear a mask, and wash your hands frequently. Please return to the emergency department immediately with any new or concerning symptoms including but not limited to any chest pain ,any fevers, any inability to tolerate oral intake, any severe abdominal pain, any difficulty breathing, any new rashes, any sudden onset of any weakness, severe fever unresponsive to home medications, or anything else that is new or concerning to you. If you were diagnosed or suspected of having a seizure, prescribed a sedative or narcotic, experienced a lapse in consciousness, or provided an eye patch, do not drive. If you continue to have worsening of your current symptoms return to the emergency department immediately for reevaluation. The following attachments cannot be sent through Care Everywhere.Kidney Stone (Honduran)Kidney Stone Prevention Diet: General Info (Honduran)documented in this encounter [facility] Phone: Evaluation note Note Date & Type Note Facility Evaluation note Diagnosis Nephrolithiasis- Primary Calculus of kidney Asymptomatic bacteriuria Other nonspecific finding on examination of urine documented in this encounter [facility] Phone: Evaluation note Note Date & Type Note Facility Evaluation note Diagnosis Ureteral calculus Calculus of ureter documented in this encounter [facility]AR[facility] Phone: Summary Purpose Family History No Family History Records FoundUnknown Family Member Name Dates Details FHx: myocardial infarction: Mother, Father(V17.3, Z82.49) Status:Active History of coronary artery s tent placement: Father(V45.82, Z95.5) Status:Active Unknown Family Member Name Dates Details FHx: myocardial infarction: Mother, Father(V17.3, Z82.49) Status:Active History of coronary artery s tent placement: Father(V45.82, Z95.5) Status:Active Unknown Family Member Name Dates Details FHx: myocardial infarction: Mother, Father(V17.3, Z82.49) Status:Active History of coronary artery s tent placement: Father(V45.82, Z95.5) Status:Active Unknown Family Member Name Dates Details FHx: myocardial infarction: Mother, Father(V17.3, Z82.49) Status:Active History of coronary artery s tent placement: Father(V45.82, Z95.5) Status:Active Unknown Family Member Name Dates Details FHx: myocardial infarction: Mother, Father(V17.3, Z82.49) Status:Active History of coronary artery s tent placement: Father(V45.82, Z95.5) Status:Active Advance Directives No Advanced Directives Records FoundNo Advanced Directives Records FoundNo Advanced Directives Records FoundNo Advanced Directives Records Found Chief Complaint * BRETT ELKINS is being seen for an annual follow-up of. * 60-year-old gentleman who returns for follow-up, doing well. Spent 2 years since I have last seen him. He has no angina or hospitalizations or nitrate usage. He has known history of previous inferiorMI with revascularization of the RCA, in 2016. He has underlying hypertension, obesity, recurrent tobacco use * We counseled him extensively for 5 minutes today on tobacco cessation, weight loss, exercise, aerobic training as means towards better secondary prevention. * Recommendations: Obtain lipid panel above-mentioned counseling, he never followed up with stress testing 2 years ago and I would recommend at this juncture we proceed with routine treadmill stress testing as it has been 6 years from his last event. Additional Source Comments (unrecognized sect ion and content) No Status Records FoundNo Status Records FoundNo Status Records FoundNo Status Records Found INFORMATION SOURCE (unrecogn ized section and content) DATE CREATED AUTHOR 04/27/2020 [facility] DATE CREATED AUTHOR AUTHOR'S ORGANIZ ATION 11/23/2021 [employer] DATE CREATED AUTHOR AUTHOR'S ORGANIZ ATION 11/23/2021 [facility] DATE CREATED AUTHOR AUTHOR'S ORGANIZ ATION 05/02/2024 [facility] Reason for Visit (unrecogniz ed section and content) Reason Comments Abdominal Pain left sided, states u rinated blood earlier today, had emesis that was blood tinged Ordered Prescriptions (unrec ognized section and content) Prescription Sig Dispensed Refills Start Date End Da te tamsulosin (FLOMAX) 0.4 MG capsule Take 1 capsule by mouth daily 30 capsule 0 09/29/2021 cephALEXin (KEFLEX) 500 MG capsule Take 1 capsule by mouth 4 times daily for 7 days 28 capsule 0 09/29/2021 10/06/2021 Scheduled Active and Recently Administ ered Medications (unrecognized section and content) Medication Order 09/27/2021 09/28/2021 09/29/2021 0.9 % sodium chloride bolus (COMPLETED) 1,000 mL (9.18 mL/kg), IntraVENous, at 1,000 mL/hr, Administer over 1 Hours, ONCE, On Michelle 09/29/21 at 1815, For 1 dose 1903 (New Bag - Prov ider: Laura Shetty RN)2042 (Stopped - Provider: Daylin Navarro RN) cephALEXin (KEFLEX) capsule 500 mg (COMPLETED) 500 mg, Oral, ONCE, 1 dose, On Micehlle 09/29/21 at 2030, Antimicrobial Indications: Urinary Tract Infection 2042 (Given - Provid er: Daylin Navarro RN) ketorolac (TORADOL) injection 30 mg (COMPLETED) Ketorolac is contraindicated in patients with advanced renal impairment and in patients at risk of renal failure due to volume depletion. For 65 years of age and older OR weight less than 50 kg, use 15 mg IV every 6 hours; MAX dose: 60 mg/day. Dose greater than 30 mg must be administered via intramuscular route. Do not administer for more than 5 days., 30 mg, IntraVENous, ONCE, 1 dose, On Michelle 09/29/21 at 1815, Do not administer for more than 5 days. 1820 (Given - Provid er: Laura Shetty, TAMIR) morphine injection 4 mg (COMPLETED) 4 mg, IntraVENous, ONCE, 1 dose, On Michelle 09/29/21 at 1815, If oral and IV narcotics ordered, use oral first and only use IV if oral is ineffective or cannot take oral. Do Not give oral and IV within 1 hour of each other unless specifically ordered. 1820 (Given - Provid er: Laura Shetty, TAMIR) tamsulosin (FLOMAX) capsule 0.4 mg (COMPLETED) 0.4 mg, Oral, ONCE, 1 dose, On Michelle 09/29/21 at 1945, Do not crush or break. 1936 (Given - Provid er: Laura Shetty, TAMIR) Care Teams (unrecognized sec tion and content) Per Assessment Nurse Relationship Specialty Start Date End Date Laura Dunaway [address] [place] [address] PCP - General Nurse Practitioner 09/29/21 Per Assessment Nurse Relationship Specialty Start Date End Date Laura Dunaway [address] [place] [address] PCP - General Nurse Practitioner 09/29/21 Per Assessment Nurse Relationship Specialty Start Date End Date Laura Dunaway [address] [place], [place] [id number] PCP - General Nurse Practitioner 09/29/21 Per Assessment Nurse Relationship Specialty Start Date End Date Laura Dunaway APRN - BASHIR [address] [place] [address] PCP - General Nurse Practitioner 09/29/21 FOR RECORDS PERTAINING TO PATIENTS WHO ARE OR HAVE BEEN ENROLLED IN A CHEMICAL DEPENDENCY/SUBSTANCEABUSE PROGRAM, SOME INFORMATION MAY BE OMITTED. This clinical summary was aggregated from multiple sources. Caution should be exercised in using it in the provision of clinical care. This summary normalizes information from multiple sources, and as a consequence, information in this document may materially change the coding, format and clinical context of patient data. In addition, data may be omitted in some cases. CLINICAL DECISIONS SHOULD BE BASED ON THE PRIMARY CLINICAL RECORDS. [facility]. provides no warranty or guarantee of the accuracy or completeness of information in this document.
== END 2024-12-29 07:53 | disposition home or self-care (01) ==
LOC: CARD 07:52
PROVIDERS: PCP Family Medicine; Visit Provider Family Medicine
DX: R07.89 Other chest pain (principal); J44.9 Chronic obstructive pulmonary disease, unspecified; I10 Essential (primary) hypertension
CPT/HCPCS: 93306